=== PATIENT | female | born 1965 | race African-American/Black ===

== ENCOUNTER 2019-02-25 13:40 | Emergency (ER) | payer OTHER ==
[~2019-02-25] VITALS: Ht 162.6 cm; Wt 127.0 kg
[~2019-02-25 13:40] MED LIST: BENAZEPRIL HCL10 MG PO; BENTYL 10 MG CA10 M1 PO; DARVOCET-N 1001 EACH PO; DENIES ANY MEDS; FERROUS GLUCON324 M1 PO; LISINOPRIL10 MG PO
[2019-02-25 13:54] LABS: URINE BILIRUBIN NEGATIVE (Negative); URINE BLOOD NEGATIVE (Negative); URINE CLARITY CLEAR; URINE COLOR YELLOW; URINE GLUCOSE-RANDOM* NEGATIVE (Negative); URINE KETONES NEGATIVE (Negative); URINE LEUKOCYTES-REFLEX TRACE (Negative); URINE NITRITE-REFLEX NEGATIVE (Negative); URINE PROTEIN (DIPSTICK) NEGATIVE (Negative); URINE UROBILINOGEN 0.2 E.U./dl (0.2-1.0)
[2019-02-25 14:21] LABS: ABSOLUTE NEUTROPHILS 2.4 thou/uL (1.4-8.2); BASOPHILS 0.6 % (0.0-2.0); EOSINOPHILS 1.4 % (0.0-3.0); HEMATOCRIT 39.4 % (37.0-47.0); HEMOGLOBIN 13.1 gm/dL (12.0-15.0); LYMPHOCYTES 39.7 % (24.0-44.0); MCH 29.9 pg (26.0-34.0); MCHC 33.3 g/dL (28.0-37.0); MCV 89.7 fL (80.0-100.0); MONOCYTES 6.4 % (1.0-8.0); PLATELET COUNT 259 thou/uL (150-400); POLYS 51.9 % (36.0-66.0); RDW 13.8 % (10.5-14.5); WBC 4.5 thou/uL (4.0-11.0)
[2019-02-25 14:27] LABS: CALCIUM 10.1 mg/dL (8.5-10.1)
[2019-02-25 14:33] LABS: ALBUMIN 3.9 g/dL (3.4-5.0); TOTAL BILIRUBIN 0.4 mg/dL (<0.1-1.0); TOTAL PROTEIN 8.7 g/dL (6.4-8.2)
[2019-02-25] MEDS ORDERED: FLAGYL500 M1 PO (16:29)
[2019-02-25] MEDS ORDERED: NORCO 5-325 TA1 EAC1 PO (16:29)
[2019-02-25 16:57] VITALS: BP 131/82
== END 2019-02-25 16:58 | disposition home or self-care (01) ==
LOC: ER 13:40
PROVIDERS: Physician Assistant
DX: N76.0 Acute vaginitis (principal); R10.9 Unspecified abdominal pain; I10 Essential (primary) hypertension; J45.909 Unspecified asthma, uncomplicated; Z98.51 Tubal ligation status; Z79.899 Other long term (current) drug therapy

== ENCOUNTER 2019-06-03 16:19 | Emergency (ER) | payer OTHER ==
[~2019-06-03] VITALS: Ht 162.6 cm; Wt 117.9 kg
[~2019-06-03 16:19] MED LIST changes: +FLAGYL500 M1 PO; +NORCO 5-325 TA1 EAC1 PO
[2019-06-03 16:55] LABS: URINE BILIRUBIN NEGATIVE (Negative); URINE BLOOD 3+ (Negative); URINE CLARITY SL CLOUDY; URINE COLOR YELLOW; URINE GLUCOSE-RANDOM* NEGATIVE (Negative); URINE KETONES NEGATIVE (Negative); URINE PROTEIN (DIPSTICK) 1+ (Negative); URINE SPECIFIC GRAVITY 1.025 (1.005-1.035); URINE UROBILINOGEN 0.2 E.U./dl (0.2-1.0)
[2019-06-03 16:58] LABS: URINE LEUKOCYTES-REFLEX 2+ (Negative); URINE NITRITE-REFLEX POSITIVE (Negative)
[2019-06-03 17:08] LABS: BACTERIA-REFLEX None Seen /HPF (None Seen); CASTS None Seen /LPF (None Seen); CRYSTALS None Seen /LPF (None Seen); SQUAMOUS None Seen /LPF (0-3); URINE RBC >20 Many /HPF (0-2); URINE WBC-REFLEX >25 Many /HPF (0-5); WBC CLUMPS Moderate (None Seen)
[2019-06-03] MEDS ORDERED: KEFLEX500 M1 PO (17:09)
[2019-06-03] MEDS ORDERED: PHENAZOPYRIDIN200 M2 PO (17:09)
[2019-06-03 17:35] VITALS: BP 168/102
== END 2019-06-03 17:38 | disposition home or self-care (01) ==
LOC: ER 16:19
PROVIDERS: Physician Assistant
DX: N39.0 Urinary tract infection, site not specified (principal); I10 Essential (primary) hypertension; J45.909 Unspecified asthma, uncomplicated

== ENCOUNTER 2019-07-02 17:27 | Emergency (ER) | payer OTHER ==
[~2019-07-02] VITALS: Ht 162.6 cm; Wt 120.2 kg
[~2019-07-02 17:27] MED LIST changes: +KEFLEX500 M1 PO; +PHENAZOPYRIDIN200 M2 PO
[2019-07-02 19:39] LABS: ABSOLUTE NEUTROPHILS 2.6 thou/uL (1.4-8.2); BASOPHILS 0.9 % (0.0-2.0); EOSINOPHILS 1.8 % (0.0-3.0); HEMATOCRIT 34.6 % (37.0-47.0); HEMOGLOBIN 11.5 gm/dL (12.0-15.0); MCH 29.5 pg (26.0-34.0); MCHC 33.2 g/dL (28.0-37.0); MONOCYTES 5.8 % (1.0-8.0); PLATELET COUNT 245 thou/uL (150-400); POLYS 54.5 % (36.0-66.0); RBC 3.89 mil/uL (4.20-5.00); WBC 4.8 thou/uL (4.0-11.0)
[2019-07-02 19:41] LABS: ANION GAP 6 mmol/L (7-16); BUN 12 mg/dL (7-18); CALCIUM 9.5 mg/dL (8.5-10.1); CHLORIDE 105 mmol/L (98-107); CO2 30 mmol/L (21-32); GLUCOSE 108 mg/dL (74-106); POTASSIUM 3.5 mmol/L (3.5-5.1); SODIUM 141 mmol/L (136-145)
[2019-07-02 19:50] LABS: TROPONIN-I <0.06 ng/mL (<0.06)
[2019-07-02] MEDS ORDERED: LISINOPRIL10 MG PO (20:11)
[2019-07-02] MEDS ORDERED: LASIX 40 MG TAB40 MG PO (20:11)
[2019-07-02 20:32] VITALS: BP 152/100
--- NOTE | 2019-07-03 08:39 | EKG ---
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[employer] Consultant: : 1965 Requested By: Monique Munoz Order Number: [id number] MD: Patel Dumont Measurements Intervals [place] Rate: 88 P: 70 [place]: 129 QRS: 48 QRSD: 77 T: 30 QT: 358 QTc: 434 Interpretive Statements Sinus rhythm Normal tracing Compared to ECG 04/01/2018 09:47:25 No significant changes Electronically Signed On 07-03-2019 8:39:15 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
== END 2019-07-02 20:32 | disposition home or self-care (01) ==
LOC: ER 17:27
PROVIDERS: Nurse Practitioner
DX: R60.0 Localized edema (principal); I10 Essential (primary) hypertension; R42 Dizziness and giddiness; J45.909 Unspecified asthma, uncomplicated; Z98.51 Tubal ligation status; Z79.899 Other long term (current) drug therapy

== ENCOUNTER 2020-02-04 09:12 | Emergency (ER) | payer OTHER ==
[~2020-02-04] VITALS: Ht 162.6 cm; Wt 122.5 kg
[~2020-02-04 09:12] MED LIST changes: +LASIX 40 MG TAB40 MG PO
[2020-02-04] MEDS ORDERED: ALBUTEROL2.5 MG/0.1 INH (09:21)
[2020-02-04 10:06] LABS: ABSOLUTE NEUTROPHILS 2.4 thou/uL (1.4-8.2); BASOPHILS 1.1 % (0.0-2.0); EOSINOPHILS 1.4 % (0.0-3.0); HEMATOCRIT 35.6 % (37.0-47.0); HEMOGLOBIN 12.2 gm/dL (12.0-15.0); MCH 30.6 pg (26.0-34.0); MCHC 34.3 g/dL (28.0-37.0); MCV 89.3 fL (80.0-100.0); PLATELET COUNT 256 thou/uL (150-400); POLYS 56.5 % (36.0-66.0); RBC 3.99 mil/uL (4.20-5.00); RDW 13.9 % (10.5-14.5); WBC 4.3 thou/uL (4.0-11.0)
[2020-02-04 10:17] LABS: ANION GAP 3 mmol/L (7-16); BUN 18 mg/dL (7-18); CALCIUM 9.2 mg/dL (8.5-10.1); CHLORIDE 103 mmol/L (98-107); CO2 33 mmol/L (21-32); CREATININE 1.1 mg/dL (0.6-1.0); GLUCOSE 113 mg/dL (74-106); POTASSIUM 3.7 mmol/L (3.5-5.1); SODIUM 139 mmol/L (136-145)
[2020-02-04 10:26] LABS: TROPONIN-I <0.06 ng/mL (<0.06)
[2020-02-04 11:47] VITALS: BP 114/70
--- NOTE | 2020-02-04 16:37 | EKG ---
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
== END 2020-02-04 11:49 | disposition home or self-care (01) ==
LOC: ER 09:12
PROVIDERS: Emergency Medicine
DX: R07.89 Other chest pain (principal); R42 Dizziness and giddiness; R51 Headache; I10 Essential (primary) hypertension; J45.909 Unspecified asthma, uncomplicated; Z79.899 Other long term (current) drug therapy

== ENCOUNTER 2020-03-16 17:39 | Emergency (ER) | payer OTHER ==
[~2020-03-16] VITALS: Ht 162.6 cm; Wt 123.4 kg
[~2020-03-16 17:39] MED LIST changes: +ALBUTEROL2.5 MG/0.1 INH
[2020-03-16] MEDS ORDERED: LISINOPRIL2.5 MG PO (18:19)
[2020-03-16] MEDS ORDERED: PROMETH-CODEIN 65 ML PO (20:58)
[2020-03-16] MEDS ORDERED: DOXYCYCLINE 10100 MG PO (20:58)
[2020-03-16 21:03] VITALS: BP 123/81
--- NOTE | 2020-03-17 08:21 | EKG ---
[facility] [place] [address] ELECTROCARDIOGRAM REPORT Name: RONAN CAPPSLEY Rashi Room #: [facility]#: [id number] Admission: 03/16/20 Attend Phys: Discharge: 03/16/20 Date of : 65 Report #: [id number] THIS REPORT FOR: cc: JULIUS - Yamilet family physician/PCP JULIUS - No family physician/PCP Patel Dumont MD [facility] THIS REPORT FOR: //name// 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 /EPI
== END 2020-03-16 21:10 | disposition home or self-care (01) ==
LOC: ER 17:39
DX: U07.1 COVID-19 (principal); R05 Cough; R06.02 Shortness of breath; I10 Essential (primary) hypertension; J45.909 Unspecified asthma, uncomplicated; Z79.899 Other long term (current) drug therapy

== ENCOUNTER 2021-03-31 09:25 | Emergency (ER) | payer OTHER ==
[~2021-03-31] VITALS: Ht 162.6 cm; Wt 113.4 kg
[~2021-03-31 09:25] MED LIST changes: +DOXYCYCLINE 10100 MG PO; +LISINOPRIL2.5 MG PO; +PROMETH-CODEIN 65 ML PO
[2021-03-31] MEDS ORDERED: VICTOZA 3-0.6 MG/0.1 INJECTION (09:51)
[2021-03-31] MEDS ORDERED: CONTRAVE ER 8-1 EACH PO (09:51)
[2021-03-31] MEDS ORDERED: PROAIR HFA8.5 GM INH (09:51)
[2021-03-31] MEDS ORDERED: FUROSEMIDE 40 M40 M1 PO (09:51)
[2021-03-31] MEDS ORDERED: ATORVASTATIN CA10 MG PO (09:51)
[2021-03-31] MEDS ORDERED: METFORMIN HCL500 MG PO (09:52)
[2021-03-31 10:06] LABS: ABSOLUTE NEUTROPHILS 1.8 thou/uL (1.4-8.2); EOSINOPHILS 2.4 % (0.0-3.0); HEMATOCRIT 36.8 % (37.0-47.0); LYMPHOCYTES 46.2 % (24.0-44.0); MCH 29.1 pg (26.0-34.0); MCHC 32.5 g/dL (28.0-37.0); MCV 89.6 fL (80.0-100.0); MONOCYTES 4.4 % (1.0-8.0); PLATELET COUNT 255 thou/uL (150-400); RBC 4.11 mil/uL (4.20-5.00); RDW 13.9 % (10.5-14.5); WBC 3.9 thou/uL (4.0-11.0)
[2021-03-31 10:23] LABS: CALCIUM 9.1 mg/dL (8.5-10.1); CREATININE 1.3 mg/dL (0.6-1.0); POTASSIUM 4.1 mmol/L (3.5-5.1)
[2021-03-31 10:32] LABS: ALBUMIN 3.5 g/dL (3.4-5.0); TOTAL BILIRUBIN 0.4 mg/dL (0.2-1.0); TOTAL PROTEIN 7.9 g/dL (6.4-8.2)
[2021-03-31 11:10] VITALS: BP 147/93
--- NOTE | 2021-04-02 12:15 | EKG ---
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
== END 2021-03-31 11:10 | disposition home or self-care (01) ==
LOC: ER 09:25
PROVIDERS: Emergency Medicine
DX: R07.89 Other chest pain (principal); J45.909 Unspecified asthma, uncomplicated; I11.0 Hypertensive heart disease with heart failure; I50.9 Heart failure, unspecified; Z98.51 Tubal ligation status

== ENCOUNTER 2021-08-05 09:48 | Emergency (ER) | payer OTHER ==
[~2021-08-05] VITALS: Ht 162.6 cm; Wt 121.1 kg
[~2021-08-05 09:48] MED LIST changes: +ATORVASTATIN CA10 MG PO; +CONTRAVE ER 8-1 EACH PO; +FUROSEMIDE 40 M40 M1 PO; +METFORMIN HCL500 MG PO; +PROAIR HFA8.5 GM INH; +VICTOZA 3-0.6 MG/0.1 INJECTION
[2021-08-05 10:59] LABS: HEMATOCRIT 37.1 % (37.0-47.0); HEMOGLOBIN 12.2 gm/dL (12.0-15.0); MCH 29.9 pg (26.0-34.0); MCV 90.7 fL (80.0-100.0); RBC 4.09 mil/uL (4.20-5.00); RDW 13.5 % (10.5-14.5)
[2021-08-05 11:03] LABS: CALCIUM 9.5 mg/dL (8.5-10.1); CREATININE 1.3 mg/dL (0.6-1.0); POTASSIUM 3.8 mmol/L (3.5-5.1)
[2021-08-05 11:13] LABS: ALBUMIN 3.7 g/dL (3.4-5.0); TOTAL BILIRUBIN 1.2 mg/dL (0.2-1.0); TOTAL PROTEIN 8.1 g/dL (6.4-8.2)
--- NOTE | 2021-08-05 12:19 | EKG ---
[address] [address] ELECTROCARDIOGRAM REPORT Name: REYNALDO CAPPS Room #: [facility]#: [id number] Admission: 08/05/21 Attend Phys: Discharge: Date of : 65 Report #: [id number] [facility] ED Test Date: 2021-08-05 Test Time: 09:56:26 Pat Name: REYNALDO CAPPS Department: Room: Gender: F Program Rep: Ilene TOLBERT : 1965 Requested By: Eulogio Silver Order Number: [id number] MD: Abhi Brunson Measurements Intervals [place] Rate: 88 P: 51 [place]: 129 QRS: 39 QRSD: 75 T: 17 QT: 372 QTc: 450 Interpretive Statements Sinus rhythm Compared to ECG 03/31/2021 09:29:15 No significant changes Electronically Signed On 08-05-2021 12:19:12 DYNAMICS AX SOLUTION ARCHITECT by Abhi Brunson [email or web address] <ELECTRONICALLY SIGNED> By: Abhi Brunson MD, [facility] 08/05/21 1219 0956 0956 Abhi Brunson MD, FACC /EPI
[2021-08-05 13:07] VITALS: BP 141/98
== END 2021-08-05 13:07 | disposition home or self-care (01) ==
LOC: ER 09:48
PROVIDERS: Emergency Medicine
DX: J06.9 Acute upper respiratory infection, unspecified (principal); Z20.822 Contact with and (suspected) exposure to COVID-19; I10 Essential (primary) hypertension; J45.909 Unspecified asthma, uncomplicated; Z98.51 Tubal ligation status; Z79.51 Long term (current) use of inhaled steroids; Z79.84 Long term (current) use of oral hypoglycemic drugs; Z79.899 Other long term (current) drug therapy